=== PATIENT | male | born 2000 | race Caucasian/White ===

== ENCOUNTER 2019-09-10 17:05 | Emergency (ER) | payer MEDICAID ==
[~2019-09-10] VITALS: Ht 180.3 cm; Wt 211.0 kg
[2019-09-10] MEDS ORDERED: mag hydrox/Alum hydrox/simeth 30ml oral suspension PO ONE (19:35)
[2019-09-10] MEDS ORDERED: LANS30CA37 PO (20:27)
[2019-09-10] MEDS ORDERED: CELE-193 PO (20:33)
[2019-09-10] MEDS ORDERED: ketorolac trometh inj. 60 MG/2 ML VIAL IM ONE (20:35)
[2019-09-10 20:41] VITALS: BP 142/89
== END 2019-09-10 20:43 | disposition home or self-care (01) ==
LOC: ER 17:06
DX: K21.9 Gastro-esophageal reflux disease without esophagitis (principal); E66.9 Obesity, unspecified; Z79.899 Other long term (current) drug therapy
CPT/HCPCS: 71045; 93005; 96372; 99283; J1885